=== PATIENT | female | born 1945 | race Caucasian/White ===

== ENCOUNTER 2016-10-05 14:22 | Inpatient (IN) ==
[2016-10-05] MEDS ORDERED: GLUCAGON SUBQ ONE (15:23)
--- NOTE | 2016-10-05 15:28 | PROVIDER DOCUMENTATION ---
HPI-EENT General - General Chief Complaint: Foreign Body/Throat Stated Complaint: throat Time Seen by Provider: 10/05/16 15:13 Source: patient Allergies/Adverse Reactions: Patient Allergies Allergy/AdvReac Type Severity Reaction Status Date / Time povidone-iodine Allergy HIVES Verified 10/05/16 14:30 [From Betadine] soap * [From Betadine] Allergy HIVES Verified 10/05/16 14:30 aspirin [From Percodan] AdvReac NAUSEA/VOMI Verified 10/05/16 14:30 TING oxycodone HCl * AdvReac NAUSEA/VOMI Verified 10/05/16 14:30 [From Percodan] TING oxycodone terephthalate * AdvReac NAUSEA/VOMI Verified 10/05/16 14:30 [From Percodan] TING Home Medications: Home Medication List Medication Instructions Recorded Confirmed Last Taken Type Carvedilol 12.5 mg PO BID 02/16/16 06/10/16 05/22/16 History Donepezil HCl 10 mg PO QHS 02/16/16 06/10/16 05/07/16 21:00 History PRAVAstatin [Pravachol] 40 mg PO QHS 02/16/16 06/10/16 05/07/16 21:00 History Vitamin E 400 units PO DAILY 02/16/16 06/10/16 05/22/16 History Acetaminophen [Tylenol] 650 mg PO Q6H PRN PRN 05/09/16 06/10/16 Unknown History Duloxetine [Cymbalta] 20 mg PO DAILY 05/09/16 06/10/16 05/22/16 History Loperamide [Imodium] 2 - 4 mg PO Q4H PRN PRN MDD 5 soses 05/09/16 06/10/16 Unknown History Memantine [Namenda] 10 mg PO BID 05/09/16 06/10/16 Unknown History Ondansetron HCl [Zofran] 4 mg PO Q4-6H PRN PRN 05/09/16 06/10/16 Unknown History Alprazolam [Xanax] 0.5 tab PO BID PRN 05/22/16 06/10/16 Unknown History BENAZEpril [Lotensin] 40 mg PO DAILY #30 tablet 05/24/16 06/10/16 Unknown Rx Amlodipine Besylate [Norvasc] 5 mg PO DAILY #30 tablet 05/30/16 06/10/16 Unknown Rx Calcium Carbonate [Calcium Antacid] 1 tab PO TID 09/29/16 09/29/16 Unknown History Ferrous Sulfate [Iron] 65 mg PO DAILY 09/29/16 09/29/16 Unknown History Ibuprofen 1 tab PO DIRECTED 09/29/16 09/29/16 Unknown History Loratadine 1 tab PO DAILY 09/29/16 09/29/16 Unknown History Montelukast [Singulair] 1 tab PO DAILY 09/29/16 09/29/16 Unknown History Trazodone [Desyrel] 1 tab PO HS 09/29/16 09/29/16 Unknown History Vits A,C,E/Lutein/Minerals [I-Mercedes 1 tab PO DAILY 09/29/16 09/29/16 Unknown History Tablet] Polyethylene Glycol 3350 [Miralax] 17 gm PO DAILY PRN PRN #7 powd.pack 09/30/16 Unknown Rx - History of Present Illness-EENT General Nature of Presenting Problem: 71 year old WF presents from the [facility]. pt reports she was eating a pork chop at lunch and began to choke. EMS was activated and they report she had 1 episode of emesis while enroute. pt initially reported she had the sensation of "something in my throat." upon sitting the patient up to listen to her chest, she vomited fluid/food mixture and immediately reported she felt better. she reports she feels like the food has moved down into her chest. pt in no respiratory/airway distress. pt is lying in the supine position, speaking a full sentence, breathing unlabored. EENT Location: reports: throat Quality of Pain: reports: dull Severity: reports: mild Onset/Duration: reports: just prior to arrival Timing: reports: still present, improving Prearrival Treatment: Initiated no prearrival treatment Associated Symptoms: denies: cough, drooling, voice change - Throat/Dental Throat/Dental Problem Symptoms: denies: unable to swallow Throat/Dental Problem Context: reports: foreign body, ingestion Review of Systems - Adult - REVIEW OF SYSTEMS - ADULT Constitutional: reports: no symptoms reported. denies: chills, fever Eyes: reports: no symptoms reported. denies: discharge, blurred vision Ears, Nose, Mouth & Throat: reports: see HPI, throat pain. denies: ear pain, mouth swelling, hoarseness, throat swelling Cardiovascular: reports: no symptoms reported. denies: chest pain, palpitations , syncope Respiratory: reports: no symptoms reported. denies: chronic cough, cough, shortness of breath, wheezing Gastrointestinal: reports: see HPI, nausea, vomiting. denies: abdominal pain, hematemesis, constipation, diarrhea Genitourinary: reports: no symptoms reported. denies: dysuria, hematuria, urgency Musculoskeletal: reports: no symptoms reported. denies: bone pain, joint pain, joint swelling, neck pain Integumentary: reports: no symptoms reported. denies: hives, itching, skin sores/ulcer Neurological: reports: no symptoms reported. denies: ataxia, dizziness/vertigo , numbness, paresthesia Psychiatric: reports: no symptoms reported Endocrine: reports: no symptoms reported Hematologic/Lymphatic: reports: no symptoms reported Allergic/Immunologic: reports: no symptoms reported All Other Systems: Reviewed and Negative Past History - Adult - PAST MEDICAL HISTORY-ADULT Review of Records: reports: Old Records Reviewed, Nursing Assessment Review, Medications Reviewed, Social history reviewed & non-contributory. Major Childhood Illnesses: reports: denies history Cardiovascular: reports: CAD, CHF, HTN, ND Respiratory: reports: COPD Gastrointestinal: reports: denies history Obstetrical/Gynecological: reports: denies history Genitourinary: reports: kidney disease Musculoskeletal: reports: denies history Neurological: reports: Alzheimer's, dementia, headaches/migraines Endocrine/Immune: reports: denies history Other Conditions: reports: denies history - PRIOR SURGERIES/PROCEDURES Surgical/Procedure History: reports: hysterectomy - IMMUNIZATION STATUS Childhood Immunizations: See Nurse Assessment Flu Vaccine: See Nurse Assessment - FAMILY HISTORY Family History: reviewed, not pertinent Physical Exam- EENT - Physical Exam EENT Initial Vital Signs Reviewed: Yes General Appearance: appears well, alert, no apparent distress. negative: mild distress, moderate distress, severe distress Eye Exam: bilateral eye: normal inspection Nasal Exam: normal inspection Throat Exam: normal mouth inspection, pharynx normal. negative: excessive drooling, foreign body, pharynx swelling, pharynx tenderness, tongue swollen, tonsillar exudate, tonsillar swelling, trismus, uvula swelling, voice changes Neck: non-tender, full range of motion, supple, normal inspection. negative: C- spine tenderness, limited range of motion, tender lateral, tender midline Respiratory: chest non-tender, lungs clear, normal breath sounds, no pleuratic chest pain, no respiratory distress, no accessory muscle use. negative: respiratory distress, decreased breath sounds, accessory muscle use, crackles, rales, rhonchi, stridor, wheezing Cardiovascular: normal peripheral pulses, regular rate, rhythm Abdominal Exam: normal bowel sounds, non tender, soft Back Exam: normal inspection, no vertebral tenderness Extremity: normal range of motion, non-tender Integumentary: normal color, normal turgor, warm/dry. negative: pallor Neurologic: grossly normal, no motor/sensory deficits Psych/Mental Status: normal mood/affect, normal thought content, normal thought process, oriented x 3 Progress - PLAN OF CARE/RESULTS Progress/Plan/Lab Results: Laboratory Results - last 24 hr 10/05/16 17:10 Sodium 136 Potassium 3.7 Chloride 100 Carbon Dioxide 20 L Anion Gap 16 BUN 15 Creatinine 1.3 H Estimated GFR/1.73 m2 40 BUN/Creatinine Ratio 12 Glucose 232 H Calculated Osmolality 280 Calcium 10.4 H Total Bilirubin 0.50 AST 22 ALT 16 Alkaline Phosphatase 126 H Total Protein 7.7 Albumin 4.3 Globulin 3.0 Albumin/Globulin Ratio 1.0 Amylase 66 Lipase 51 Orders Category Date Time Status Admit - [facility] Routine AdmDCTranf 10/05/16 17:12 Ordered Saline Loc DIRECTED Care 10/05/16 16:22 Active Saline Loc NOW Care 10/05/16 16:22 Active NPO Diet 10/05/16 16:22 Completed CHEST-2 VIEWS [RAD] Stat Exams 10/05/16 14:45 Draft CHEST-PORTABLE [RAD] Stat Exams 10/05/16 16:19 Draft NECK AP AND/OR LAT SOFT TISSUE [RAD] Stat Exams 10/05/16 14:45 Draft AMYLASE [CHEM] Stat Lab 10/05/16 17:10 Completed CBC WITH ELECTRONIC DIFF [HEME] Stat Lab 10/05/16 17:10 Completed COMPREHENSIVE METABOLIC PANEL [CHEM] Stat Lab 10/05/16 17:10 Completed LIPASE [CHEM] Stat Lab 10/05/16 17:10 Completed 0.9% Sodium Chloride Inj [Ns] 1,000 ml Med 10/05/16 17:37 Discontinued IV 999 mls/hr Glucagon Med 10/05/16 15:23 Discontinued 1 mg SUBQ NOW ONE Morphine Med 10/05/16 16:28 Discontinued 2 mg IV NOW ONE Morphine Med 10/05/16 17:39 Discontinued 2 mg IV NOW ONE Ondansetron [Zofran] Med 10/05/16 16:28 Discontinued 4 mg IV NOW ONE Ondansetron [Zofran] Med 10/05/16 17:39 Discontinued 4 mg IV NOW ONE Transfer/Admit Order [TRANSFER] Routine Transfer 10/05/16 17:13 Completed Reviewed radiology with Dr. Hills, noted air fluid levels. Films were performed prior to my evaluation, emesis and improvement. Plan: administer glucagon, repeat CXR to see if improvement. Vital Signs - 24 hr 10/05/16 14:25 10/05/16 18:02 Temperature 97.4 F L Pulse Rate 73 71 Respiratory Rate 18 18 Blood Pressure 185/74 O2 Sat by Pulse Oximetry 100 99 Result Diagrams: 10/05/16 22:40 10/05/16 17:10 - REASSESSMENT Reassessment #1 Time Reassessed: 16:19 Status: worsening (pt colette reports severe abd pain, writhing around in bed. pt reports the chest discomfort has resolved, pt has had multiple episodes of vomiting, repeat CXR.) Reassessment #2 Time Reassessed: 16:45 Status: other (repeat CXR improved, however, pt continues to vomit, Dr. Hills aware, GI consult. Notified of pending consult and transfer, he verbalized understanding.) Reassessment #3 Time Reassessed: 18:06 Status: other ( is very agitated with delay of transfer to [facility]. Have spent extensive time at the bedside educating on the need for a bed assignment before transfer. Pts vomiting persists with pain, will medicate) - XRAY 1 XRAY Study: Chest Impression: Abnormal (esophageal air fluid level) 2 XRAY Study: Chest Impression: Abnormal (improved air fluid level) - CONSULTS/PCP/HOSPITALIST Notification #1 *Consult/PCP/Hospitalist*: Dr. George Time Discussed: 16:55 Consult Disposition: other (have patinet transferred to DG and she will scope, have pt admitted to hospitalist and she will consult.) #2 Consult: Dr. Eaton Time Discussed: 17:00 Consult Disposition: other (notified of transfer, agrees.) #3 Consult: Dr. Richard Time Discussed: 17:14 Consult Disposition: Admit (will inquire about bed status and call back. If no beds available, pt will go to the ED.) Departure - Departure Time of Disposition Decision: 16:55 DIAGNOSIS: Esophageal foreign body Qualifiers: Encounter type: initial encounter Qualified Code(s): T18.108A - Unspecified foreign body in esophagus causing other injury, initial encounter Disposition: ADMITTED INPATIENT 09 Certified Medical Emergency: Emergent Condition: Stable Attestation - Physician/ NOEMI Attestation Patient care was provided by Advanced Practice Provider:: Yes Advanced Practice Provider:: Feliberto Delarosa Advanced Practice Provider documentation review:: The Mid-level provider documentation, treatment plan and medical decision making was reviewed by the physician who agrees with all treatment and medical decision making by the MLP.
--- NOTE | 2016-10-05 15:30 | Diag Imaging Result Document ---
PROCEDURE NAME: CHEST-2 VIEWS - 10/05/2016 CHEST X-RAY, 2 VIEWS: COMPARISON: 05/22/2016. FINDINGS: There is an air-fluid level in the upper thoracic esophagus on both views. This is consistent with an obstruction at the distal esophagus. No free air. The lungs are clear and the heart size is normal. IMPRESSION: Air-fluid level in the upper thoracic esophagus consistent with obstruction of the distal esophagus, presumably from a food bolus.
--- NOTE | 2016-10-05 15:46 | Diag Imaging Result Document ---
PROCEDURE NAME: NECK AP AND/OR LAT SOFT TISSUE - 10/05/2016 X-RAY SOFT TISSUE NECK, 2 VIEWS: COMPARISON: None. FINDINGS: The exam is normal. IMPRESSION: Negative exam.
[2016-10-05] MEDS ORDERED: MORPHINE IV ONE ×2 (16:28→17:39)
[2016-10-05] MEDS ORDERED: ZOFRAN IV ONE ×2 (16:28→17:39)
[2016-10-05 17:16] LABS: MANUAL DIFF NEEDED? NO
--- NOTE | 2016-10-05 17:16 | Diag Imaging Result Document ---
PROCEDURE NAME: CHEST-PORTABLE - 10/05/2016 PORTABLE CHEST AT 1636 HOURS: COMPARISON: 1601 hours. FINDINGS: The esophageal air-fluid level is not as convincingly visible on this exam, this is limited since it was only a single view exam. IMPRESSION: Limited for evaluation of the esophagus. No obvious air-fluid level.
[2016-10-05 17:18] LABS: BASO% 0.5 % (0.0-0.8); EOS# 0.61 X1000 (0.0-0.7); EOS% 3.4 % (0.0-10.0); HEMATOCRIT 35.5 % (37.0-47.0); HEMOGLOBIN 12.5 g/dL (12.0-16.0); IMM GRAN# 0.04 X1000 (0.0-0.04); IMM GRAN% 0.2 % (0.0-0.5); LYMPH# 2.61 X1000 (1.2-3.4); LYMPH% 14.7 % (20.5-51.1); MCH 29.4 PG (27-31); MCHC 35.2 g/dL (33-37); MCV 83.5 FL (81-99); MONO# 0.87 X1000 (0.11-0.59); MONO% 4.9 % (1.7-9.3); MPV 9.6 FL (7.4-10.4); NEUT% 76.3 % (42.2-75.2); PLT 292 X1000 (130-400); RBC 4.25 XMIL (4.2-5.4)
[2016-10-05] MEDS ORDERED: NS 1,000 ML IV ONE (17:37)
[2016-10-05 17:58] LABS: ALBUMIN 4.3 g/dL (3.5-5.0); CALCIUM 10.4 mg/dL (8.8-10.2); POTASSIUM 3.7 mmol/L (3.5-5.1); TOTAL BILIRUBIN 0.5 mg/dL (0.20-1.00); TOTAL PROTEIN 7.7 g/dL (6.3-8.3)
[2016-10-05] MEDS ORDERED: PROTONIX IV SCH (19:15)
[2016-10-05] MEDS: SODIUM CHLORIDE 0.9% INJ SCH (20:29)
[2016-10-05] MEDS: NS 1,000 ML IV SCH (20:29)
--- NOTE | 2016-10-05 21:45 | HISTORY AND PHYSICAL ---
PCP: Ca Crowe. PRESENTING COMPLAINT: Unable to swallow due to food stuck in her throat. 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 She refers to have been doing relatively fine until this afternoon she was eating some pork chops and felt that the chunk of whatever she was eating has stuck in her throat. She tried multiple times to throw up or to swallow it down and it would not happen. She was taken to [facility] via EMS where she was initially evaluated and neck and soft tissue x-ray was initially done which showed some air-fluid level in the upper thoracic esophagus consistent with obstruction of the distal esophagus presumably from the food bolus. The patient was given initial therapy and apparently she seems to have vomited the material out. However she continues to have mild discomfort upon swallowing so she was brought in to be evaluated by GI. PAST MEDICAL HISTORY: 1. Hypertension. 2. NH. 3. COPD. 4. Dementia. 5. Myelodysplastic syndrome. PAST SURGICAL HISTORY: 1. Hysterectomy. 2. Tonsillectomy. 3. Pituitary tumor. FAMILY HISTORY: Is positive for coronary artery disease. Breast cancer. SOCIAL HISTORY: Patient currently lives in assisted living. Denies any tobacco or alcohol use. ALLERGIES: Percodan HOME MEDICATIONS: Are currently not verify and patient does not really know what she takes. REVIEW OF SYSTEMS: 14 point review of system conducted with Ms. Adams is unremarkable except what we have in the HPI. OBJECTIVE: Vital signs: Blood pressure is 183/75, pulse of 72, respirations 20 , temperature 97.4 degrees. General: Ms. Adams is a 71-year-old female. She was in bed and not in any distress. HEENT: Mucosa is pink and moist. Anicteric. Acyanotic. Neck: Supple. Chest: Clear. Cardiovascular: Regular rate and rhythm. No murmurs, no rubs. No gallops. Abdomen: Soft. Mildly tender in the epigastrium but there is no guarding or rebound. 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 Does not have any focal neurological deficit. However she is bilateral blind. Cranial nerves 3-12 are grossly examined and are unremarkable. Patient does have significant memory impairment on testing. LABORATORY DATA: WBC is 11.77, hemoglobin is 12.5, platelet count is 295,000. Chemistry. Sodium 136, potassium 3.7, chloride is 100, bicarb is 20, anion gap is 16, creatinine is 1.3, glucose is 232, calcium is 10.4. ASSESSMENT: Ms Adams with multiple comorbidities who currently lives at the assisted living presented with what seems to have been dysphagia secondary to food bolus. 1. Dysphagia secondary to food bolus. This seems to have improved however patient continues to have residual discomfort upon swallowing. GI has been consulted. Dr. George will evaluate the patient and give us some further recommendations. For now we will put the patient NPO until she gets to be evaluated by GI. 2. Mild clinical dehydration. We would continue adequate hydration with normal saline at 75 mL per hour. 3. Acute on chronic kidney disease likely due to dehydration. 4. Hyperglycemia. Not sure if it is just a stress response. We will do an A1c to better characterize this. 5. Mild hypercalcemia. I think this is related to the dehydration. Once we get her were hydrated I think it will improve. cc: Figueroa Richard MD MTDD
[2016-10-05 22:51] LABS: MANUAL DIFF NEEDED? NO
--- NOTE | 2016-10-05 22:56 | CONSULTATION ---
DATE OF CONSULTATION: 10/05/2016 REFERRING PHYSICIAN: Lucio Hills M.D. PRIMARY PROVIDER: NENA Luu. PRIMARY HOSPITALIST: Figueroa Richard M.D. INDICATION FOR CONSULTATION: 1. Food impaction. 2. Epigastric pain. 3. Constipation. HISTORY OF PRESENT ILLNESS: The patient is a 71-year-old white female who states that she was in her usual state of health. She was eating lunch with her friends at the [facility] which she became choked on a pork chop. The Heimlich maneuver was tried 3 times at table side without success, 911 was called and she was transported to [place] emergency room. When she presented to the emergency room, she was actively vomiting. The chest x-ray that was performed in the emergency room revealed an air-fluid level in the midthoracic area consistent with food impaction. She had no response to IV glucagon. However, she had multiple episodes of emesis immediately before her transport to [facility]. She subsequently regurgitated a piece of pork chop and had immediate symptomatic improvement. She continued to have hiccups upon her arrival to [facility]. These have subsequently subsided. She notes longstanding heartburn and indigestion. She was recently placed on Prilosec since she and her became residents at the [facility] which is an assisted living facility. She has chronic constipation. However, her constipation has become worse over the last 2-3 months. She also reports that her stools have become black and she is not sure why. She was recently seen in the emergency room on 09/29/2016 with increasing abdominal pain. CT scan at that time was remarkable for severe constipation. In addition, she had a large hiatal hernia. Otherwise, the CT scan was unremarkable. There was no evidence of gallstones and the gallbladder appeared grossly normal. The small bowel was not distended. She did have evidence of fecal impaction on CT scan of the pelvis. She states that the constipation persists. She is concerned because over the last 2-3 months she has felt increasingly weak and unsteady on her feet. She reports that the weakness began about the same time that her stools turned black. She has not been seen by a cake former in recent years. She states her last colonoscopy was more than 15 years ago. She denies a family history of colon cancer or colon polyps. PAST MEDICAL HISTORY: 1. Hypertension. 2. Myocardial infarction. 3. COPD. 4. CHF. 5. Alzheimer's. 6. Dementia. 7. GERD. 8. Myelodysplastic syndrome. 9. History of a PE and DVT. 10. Bilateral pneumonia. PAST SURGICAL HISTORY: 1. [place] filter. 2. Hysterectomy. 3. Uterine fibroid removal. 4. Tonsillectomy. 5. Pituitary tumor. FAMILY HISTORY: Positive for coronary artery disease, breast cancer, lung cancer and a brain tumor. SOCIAL HISTORY: She resides at assisted living facility. There is no alcohol, tobacco, recreational drug use. MEDICATION ALLERGIES: 1. Betadine. 2. Percodan. 3. Aspirin. 4. Soap. 5. Oxycodone. HOME MEDICATIONS: 1. Eye-Mercedes. 2. Vitamin E. 3. Desyrel. 4. MiraLAX. 5. Pravachol. 6. Zofran. 7. Singulair. 8. Namenda. 9. Loratadine. 10. Imodium as needed. 11. Ibuprofen. 12. Iron. 13. Cymbalta. 14. Donepezil. 15. Carvedilol. 16. Calcium carbonate. 17. Lotensin. 18. Norvasc. 19. Xanax. 20. Tylenol. REVIEW OF SYSTEMS: Remarkable for epigastric discomfort. She reports that she is able to swallow without difficulty. She denies chest pain, shortness of breath, abdominal pain but notes constipation. PHYSICAL EXAM: General: She is in no acute distress. She is resting comfortably in the bed and able to speak in full sentences. Vital signs: Her blood pressure is 182/72, pulse is 70, respiration 18, temperature of 98.2 degrees. HEENT: Negative for jaundice. The conjunctivae appeared normal. Oropharyngeal mucosal membranes are unremarkable. There is no evidence of a foreign body in the oral cavity. Pulmonary: Lungs are clear to auscultation with normal expiratory effort. Cardiovascular Exam: Reveals regular rate and rhythm with no murmurs, gallops, or rubs. Abdominal Exam: Reveals normoactive bowel sounds. The abdomen is soft with moderate epigastric tenderness. There is no rebound or guarding. She does have mild central adiposity. Extremities: Bilaterally are negative for cyanosis, clubbing or edema. Neurologic Exam: She is alert and oriented x3 but she struggles with memory recall of events and medications consistent with her history of dementia. OBJECTIVE DATA: Reveals a hemoglobin of 12.5 with a hematocrit of 35.5 and a white count of 17.77. She has 292,000 platelets. Sodium is 136, potassium 3.7, chloride 100, CO2 20, BUN 15, creatinine 1.3 with a glucose of 232. Her calcium is 10.4 with a total bilirubin of 0.50, AST 22, ALT 16, alkaline phosphatase 127, total protein 7.7, albumin 3.4. Her amylase is 66 and lipase is 51. Chest x-ray and abdominal CT scan are as noted above. IMPRESSION: 1. Heartburn. 2. Food impaction. 3. Dysphagia. 4. Epigastric pain on physical exam. 5. History of chronic constipation. 6. Personal report of black stools. 7. Ongoing nonsteroidal anti-inflammatory drug use. 8. Labs suggestive of volume depletion. 9. Change in bowel habits with worsening constipation. RECOMMENDATION: 1. Begin Prilosec 40 mg IV q.12 hours. 2. At bedside, she was able to swallow sips of water without difficulty consistent with a history of dislodging the food impaction. However, she has longstanding heartburn but has never had a food impaction in the past. Therefore, I recommend a modified barium swallow to determine if she has esophageal spasm or an obstruction. One is treated with medication while the other would be treated with dilation. Once we have this information will schedule the patient for an EGD with possible dilation and/or biopsy. 3. She reports epigastric pain and black stools for the last 2-3 months. Therefore, she will need an EGD on either this admission or as an outpatient, based on the swallow study. 4. She is currently receiving ibuprofen which I would encourage that it be discontinued. Please considered non-NSAID forms of medication for pain control as needed. 5. Her labs are consistent with volume depletion. Given her age, it is reasonable to consider normal saline 75 mL/h. If her labs remain consistent with volume contraction in the morning, it would be reasonable to consider additional fluids. 6. Please check serum chemistries in the morning. 7. Please obtain a PT/INR as well as a repeat CBC tonight to assess for blood loss as she reports black stools at home. 8. Please check her stool for occult blood. 9. She will need an elective outpatient colonoscopy to assess the change in bowel habits. 10. Additional recommendations to follow based on her clinical course. cc: MD Angeles Chowdhury CRNP MTDD
[2016-10-05] MEDS: PROTONIX IV SCH (22:57)
[2016-10-05 23:05] LABS: BASO% 0.5 % (0.0-0.8); EOS# 0.63 X1000 (0.0-0.7); EOS% 5.4 % (0.0-10.0); HEMOGLOBIN 11.2 g/dL (12.0-16.0); IMM GRAN# 0.04 X1000 (0.0-0.04); IMM GRAN% 0.3 % (0.0-0.5); LYMPH# 2.66 X1000 (1.2-3.4); LYMPH% 22.7 % (20.5-51.1); MCH 29.9 PG (27-31); MCV 85.3 FL (81-99); MONO# 0.95 X1000 (0.11-0.59); MONO% 8.1 % (1.7-9.3); MPV 9.5 FL (7.4-10.4); PLT 277 X1000 (130-400); RBC 3.75 XMIL (4.2-5.4)
[2016-10-05] MEDS: MIRALAX PO SCH (23:11)
[2016-10-05 23:14] LABS: INR 1.09; PROTIME 11.5 Seconds (9.2-11.7)
[2016-10-06 05:52] LABS: URINE CULTURE NEEDED? NO; URINE MICRO REVIEW NEEDED? NO; URINE SOURCE CATH
[2016-10-06 05:55] LABS: BILIRUBIN URINE NEGATIVE (NEGATIVE); BLOOD URINE NEGATIVE (NEGATIVE); COLOR YELLOW; GLUCOSE URINE NEGATIVE (NEGATIVE); LEUKOCYTES URINE NEGATIVE (NEGATIVE); NITRITE URINE NEGATIVE (NEGATIVE); PROTEIN URINE 200 mg/dL (NEGATIVE); TURBIDITY URINE CLEAR (CLEAR); UROBILINOGEN URINE NORMAL (NORMAL)
[2016-10-06 05:56] LABS: UR EPITHELIAL CELLS <10 /HPF (<10); URINE BACTERIA NEGATIVE /HPF; URINE RBC <10 /HPF (<10); URINE WBC <10 /HPF (<10)
[2016-10-06] MEDS: NS 1,000 ML IV SCH (09:38)
[2016-10-06] MEDS: PROTONIX IV SCH ×2 (11:22→20:52)
[2016-10-06] MEDS: MIRALAX PO SCH ×3 (11:22→22:49)
--- NOTE | 2016-10-06 16:32 | PROGRESS NOTE ---
DATE: 10/06/2016 SUBJECTIVE: Today Ms. Adams refers to be doing fine. She is actually tolerating very well a clear liquid diet. OBJECTIVE: Vital signs: Blood pressure is 170/58, pulse of 70, respirations 16, temperature is 98.1 degrees. General: Ms. Adams is a 71-year-old female. She was in bed. Not in any distress. HEENT: Mucosa is pink and moist. Anicteric and acyanotic. Neck: Supple. Chest: Clear. Cardiovascular: Regular rate and rhythm. Abdomen: Soft, nontender. Extremities: No pedal edema. 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 Disoriented to time and he is easily forgetful. LABORATORY WORK: No laboratory work for today. ASSESSMENT: 1. Dysphagia secondary to food impaction. This seems to have resolved. Patient seems to be tolerating clear liquid diet/full liquid diet. There is a plan for her to do a barium swallow tomorrow. I think once that is done and it is okay, we will be able to discharge her. 2. Mild dehydration. This is improving with the gentle hydration. 3. Acute on chronic kidney disease. 4. History of gastroesophageal reflux disease. The patient continues on proton pump inhibitor. 5. Cognitive decline likely due to Alzheimer's. 6. History of myelodysplastic syndrome. 7. Legal blindness. PLAN: So in general, I think Ms. Adams is doing a whole lot better. She is tolerating her clear liquid/full liquid diet. She has a barium swallow test tomorrow. If that is fine, we will be able to discharge her to her assisted living. cc: Figueroa Richard MD
[2016-10-06] MEDS: NORVASC PO SCH (17:33)
[2016-10-06] MEDS: OCUVITE LUTEIN & ZEAXANTHIN PO SCH (17:33)
[2016-10-06] MEDS: VITAMIN E PO SCH (17:33)
[2016-10-06] MEDS: COREG PO SCH ×2 (17:33→20:52)
[2016-10-06] MEDS: ARICEPT PO SCH (20:50)
[2016-10-06] MEDS: PRAVACHOL PO SCH (20:51)
[2016-10-06] MEDS: NAMENDA PO SCH (20:52)
[2016-10-06] MEDS: SODIUM CHLORIDE 0.9% INJ SCH (20:52)
[2016-10-06] MEDS: XANAX PO PRN (23:18)
[2016-10-07] MEDS: PROTONIX IV SCH ×3 (02:26→21:29)
[2016-10-07] MEDS: NS 1,000 ML IV SCH (02:54)
[2016-10-07 06:13] LABS: MANUAL DIFF NEEDED? NO
[2016-10-07 06:19] LABS: BASO% 0.9 % (0.0-0.8); EOS# 1.06 X1000 (0.0-0.7); EOS% 10.1 % (0.0-10.0); HEMATOCRIT 28.5 % (37.0-47.0); HEMOGLOBIN 9.8 g/dL (12.0-16.0); LYMPH# 3.04 X1000 (1.2-3.4); LYMPH% 28.8 % (20.5-51.1); MCH 30.1 PG (27-31); MCHC 34.4 g/dL (33-37); MCV 87.4 FL (81-99); MONO# 0.88 X1000 (0.11-0.59); MONO% 8.3 % (1.7-9.3); MPV 9.6 FL (7.4-10.4); NEUT% 51.9 % (42.2-75.2); PLT 253 X1000 (130-400); RBC 3.26 XMIL (4.2-5.4)
[2016-10-07 06:29] LABS: ALBUMIN 3.1 g/dL (3.5-5.0); CALCIUM 9.1 mg/dL (8.8-10.2); POTASSIUM 4.2 mmol/L (3.5-5.1); TOTAL BILIRUBIN 0.33 mg/dL (0.20-1.00); TOTAL PROTEIN 5.7 g/dL (6.3-8.3)
[2016-10-07] MEDS: SODIUM CHLORIDE 0.9% INJ SCH ×2 (09:29→21:29)
[2016-10-07] MEDS: NAMENDA PO SCH ×2 (09:30→21:29)
[2016-10-07] MEDS: COREG PO SCH ×2 (09:30→21:29)
[2016-10-07] MEDS: MIRALAX PO SCH ×2 (09:31→21:30)
[2016-10-07] MEDS: VITAMIN E PO SCH (09:31)
[2016-10-07] MEDS: NORVASC PO SCH (09:31)
--- NOTE | 2016-10-07 10:15 | PROGRESS NOTE ---
DATE: 10/07/2016 SUBJECTIVE: Today Ms. Adams refers to be doing okay. She has been able to be tolerating her clear liquid diet. OBJECTIVE: Vital signs: Blood pressure is 186/60, pulse 65, respirations 16, temperature is 98.1 degrees. General: Ms. Adams is a 71-year-old male female. She was in bed. She did not seem to be in any distress. HEENT: Mucosa is pink and moist. Anicteric. Acyanotic. Neck: Supple. Chest: Good air entry bilaterally. No crepitations. No rhonchi. Cardiovascular: Regular rate and rhythm. Abdomen: Soft, nontender. Bowel sounds are present. There is no hepatosplenomegaly. There is an old infraumbilical surgical scar. Extremities: No pedal edema. PHOTOGRAPHER SCIENTIFIC: Patient seems to be an alert and oriented. Follows some basic commands. LABORATORY DATA: CBC is done. Hemoglobin is 9.8. The rest of labs is normal. Chemistries reviewed, completely normal. Creatinine is down to 1.1. ASSESSMENT: 1. Dysphagia secondary to food impaction. This seems to have improved. Patient is pending barium swallow. 2. Mild dehydration improved. 3. Acute on chronic kidney disease. Creatinine is back to baseline. 4. History of gastroesophageal reflux disease. The patient is on Protonix. 5. Cognitive decline likely due to Alzheimer's. We started the patient on her home medications. 6. History of myelodysplastic syndrome. 7. Legal blindness. In general, Ms. Adams seems to be doing okay. She is tolerating her clear liquid diet. She is pending a barium swallow today and if that test is normal will be able to discharge the patient home. Follow up with Dr. George on outpatient basis. cc: Figueroa Richard MD
[2016-10-07] MEDS: OCUVITE LUTEIN & ZEAXANTHIN PO SCH (10:35)
[2016-10-07] MEDS: XANAX PO PRN (10:35)
--- NOTE | 2016-10-07 13:00 | Diag Imaging Result Document ---
PROCEDURE NAME: BA SWALLOW W/VIDEO SPEECH THER - 10/07/2016 MODIFIED BARIUM SWALLOW WITH SPEECH THERAPIST: DOSE: Total dose is 121 mGy. FLUOROSCOPY TIME: 18 seconds. FINDINGS: Thick and thin barium swallowed without difficulty. No aspiration occurred during the exam. The patient has prominent tertiary contractions in the distal esophagus. No other abnormality identified. IMPRESSION: Prominent tertiary contractions in the distal esophagus. MTDD
[2016-10-07] MEDS ORDERED: GOLYTELY PO ONE (14:00)
--- NOTE | 2016-10-07 15:16 | PROGRESS NOTE ---
DATE: 10/07/2016 SUBJECTIVE: The patient states that overnight she slept well. She feels significantly better. However, she continues to have epigastric pain. She notes that she is swallowing better but is concerned that food will stick in her esophagus. On modified barium swallow, she had presbyesophagus. She continues to have constipation. She notes that she has never had a colonoscopy. She is concerned because her constipation has become worse in the last 2-3 months. She also notes dark stools that persist. Since admission, she has had no bowel movements. OBJECTIVE: General: On examination, she is in no acute distress. Vital Signs: Her blood pressure is 175/74, pulse 63, respiration 18, temperature 97 degrees. Pulmonary Examination: Lungs are clear to auscultation with normal respiratory effort. Cardiovascular Examination: Reveals regular rate and rhythm with no murmurs, gallops, or rubs. Abdominal Examination: Reveals normoactive bowel sounds. The abdomen is soft with moderate epigastric tenderness but no rebound or guarding. Extremities: Bilaterally are negative for cyanosis, clubbing, or edema. OBJECTIVE DATA: Remarkable for hemoglobin of 9.8 with hematocrit of 28.5 and a white count of 10.54 with 254,000 platelets. Sodium is 141, potassium 4.2, chloride 106, CO2 26, BUN 10, creatinine 1.1 with a glucose of 77. Calcium is 9.1, total bilirubin 0.33, AST 17, ALT 10, alkaline phosphate 83, total protein 5.7, albumin 3.1. IMPRESSION: 1. Food impaction. 2. Epigastric pain. 3. Chronic reflux. 4. Heartburn. 5. Dysphagia. 6. Chronic constipation. 7. Recent change in bowel habits. 8. Nonsteroid anti-inflammatory drug use. 9. Progressive anemia with a drop in hemoglobin of 2 g since admission. RECOMMENDATIONS: 1. Continue Protonix 40 mg IV q.12 hours. 2. I will schedule the patient for EGD and colonoscopy in the morning given her drop in hemoglobin and recent change in bowel habits as well as the above symptoms. 3. We will continue to hold NSAIDs. 4. Additional recommendations to follow based on her clinical course and endoscopy. cc: MD Angeles Livingston CRNP Raphael K. Quansah, MD Jeanette Keith, MD MTDD
--- NOTE | 2016-10-07 16:21 | PROGRESS NOTE ---
DATE: 10/07/2016 ADDENDUM REPORT: Ms. Adams did a barium swallow today which revealed prominent tertiary contraction in the distal esophagus. However, there was no difficulty swallowing and there was no aspiration. Patient is clinically stable. I did discuss the case with Dr. George but she refers that she does not have any outpatient appointment until after October 25 so the patient can get her procedure done tomorrow or will have to wait. Since I am not very sure about the patient's follow- up plans, I prefer that she get the procedure done and then we can get her discharged first thing tomorrow morning if everything is fine on the procedure. cc: Figueroa Richard MD
[2016-10-07] MEDS ORDERED: TYLENOL PO PRN (19:47)
[2016-10-07] MEDS: ARICEPT PO SCH (21:29)
[2016-10-07] MEDS: PRAVACHOL PO SCH (21:29)
[2016-10-08] MEDS: PROTONIX IV SCH (07:59)
[2016-10-08] MEDS: SODIUM CHLORIDE 0.9% INJ SCH (08:00)
[2016-10-08] MEDS ORDERED: DIPRIVAN 1% ONE (12:41)
[2016-10-08 13:00] LABS: MANUAL DIFF NEEDED? NO
[2016-10-08] MEDS ORDERED: XYLOCAINE-MPF 2% ONE (13:03)
[2016-10-08] MEDS ORDERED: ANESTHESIA PB SET 88 IN 5742 ONE (13:03)
[2016-10-08] MEDS ORDERED: LR 1,000 ML ONE (13:03)
[2016-10-08 13:18] LABS: BASO% 0.6 % (0.0-0.8); EOS# 1.09 X1000 (0.0-0.7); EOS% 8.6 % (0.0-10.0); HEMATOCRIT 32.8 % (37.0-47.0); HEMOGLOBIN 11.5 g/dL (12.0-16.0); IMM GRAN# 0.02 X1000 (0.0-0.04); IMM GRAN% 0.2 % (0.0-0.5); LYMPH# 2.23 X1000 (1.2-3.4); LYMPH% 17.6 % (20.5-51.1); MCH 29.7 PG (27-31); MCHC 35.1 g/dL (33-37); MCV 84.8 FL (81-99); MONO# 0.99 X1000 (0.11-0.59); MONO% 7.8 % (1.7-9.3); MPV 8.8 FL (7.4-10.4); NEUT% 65.2 % (42.2-75.2); PLT 255 X1000 (130-400); RBC 3.87 XMIL (4.2-5.4)
[2016-10-08] MEDS: OCUVITE LUTEIN & ZEAXANTHIN PO SCH (13:43)
[2016-10-08] MEDS: NAMENDA PO SCH (13:43)
[2016-10-08] MEDS: COREG PO SCH (13:44)
[2016-10-08] MEDS: NORVASC PO SCH (13:44)
[2016-10-08] MEDS: VITAMIN E PO SCH (13:44)
[2016-10-08] MEDS: MIRALAX PO SCH (13:48)
[2016-10-08] MEDS ORDERED: CARAFATE LIQUID PO SCH (14:00)
[2016-10-08 14:04] VITALS: BP 195/58
--- NOTE | 2016-10-08 20:35 | DISCHARGE SUMMARY ---
ADMISSION DATE: 10/05/2016 DISCHARGE DATE: 10/08/2016 ADMISSION DIAGNOSES: 1. Dysphagia. 2. Mild clinical dehydration. 3. Acute on chronic kidney disease. 4. Hyperglycemia. 5. Mild hypercalcemia. DISCHARGE DIAGNOSES: 1. Dysphagia secondary to food impaction which has improved. 2. Mild dehydration improved. 3. Acute on chronic kidney disease with a creatinine that is back to baseline. 4. History of gastroesophageal reflux disease, on Protonix. 5. Cognitive decline likely due to Alzheimer's with home medications resumed. 6. History of myelodysplastic syndrome. 7. Legal blindness. 8. Hyperglycemia resolved. 9. Mild hypercalcemia resolved. CONSULTATIONS: Dr. Hilda George consulted due to patient with dysphagia. PROCEDURES: On 04/22/2017, she had a modified barium swallow which revealed prominent tertiary contractions in the distal esophagus. HOSPITAL COURSE: Ms. Nichol Adams is a 71-year-old, female with a past medical history of hypertension, COPD, dementia, myelodysplastic syndrome, who presented on 01/2017 with complaints of having a piece of pork chop stuck in her throat. She tried multiple times throwing it up, swallow it down without success. She originally presented at [facility] where she had a neck and soft tissue x-ray which showed some air-fluid level in the upper thoracic esophagus consistent with obstruction of the distal esophagus presumably from the food she had eaten. It appeared that she did eventually vomit the material out but continued to have mild discomfort with swallowing and was transferred to [facility] to be evaluated by GI. Dr. George was consulted who then recommended the patient have a modified barium swallow to determine if this was esophageal spasm or an obstruction, where one would be treated with medication versus the other being treated with dilatation. Apparently she had also reported some epigastric pain and black stools over the last 2-3 months so it was recommended that she have an esophagogastroduodenoscopy performed either this admission or as an outpatient. All NSAIDs were stopped at that time. The modified barium swallow revealed prominent tertiary contraction of the distal esophagus but there was no difficulty with swallowing and no aspiration. She had EGD performed prior to discharge today. DISCHARGE DIET: Full liquid. DISCHARGE LABORATORY DATA: White blood cells 4000, hemoglobin 11, hematocrit 32 , platelet count 255,000. Yesterday she had a sodium of 141, potassium 4.2, BUN 10, creatinine 1.1, glucose 77. DISCHARGE IMAGING: On 10/05/2016, she had a soft tissue neck x-ray which showed a negative examination but had some fluid levels consistent with obstruction in the esophagus. Chest x-ray air-fluid level in the upper thoracic esophagus consistent with obstruction of the distal esophagus with food bolus. DISCHARGE MEDICATIONS: 1. Tylenol p.r.n. 2. Xanax 0.5 p.o. twice daily p.r.n. 3. Norvasc 5 mg p.o. daily. 4. Benazepril 40 mg p.o. daily. Benazepril 10 mg p.o. nightly. 5. Calcium carbonate. 6. Coreg 12.5 p.o. twice daily. 7. Cymbalta 20 mg p.o. daily. 8. Ferrous sulfate 65 mg p.o. daily. 9. Loratadine 9 1 tab p.o. daily. 10. Namenda 10 mg p.o. twice daily. 11. Singulair 10 mg p.o. daily. 12. Zofran 4 mg every 4-6 hours as needed. 13. Protonix 40 mg p.o. daily. 14. MiraLAX 17 g p.o. daily. 15. Pravachol 40 mg p.o. nightly. 16. Carafate 1 g p.o. 3 times a day. 17. Trazodone 50 mg p.o. nightly. 18. Vitamin A 400 units p.o. daily. 19. Vitamins A, C, E, Lutein, minerals 1 tab p.o. daily. DISCHARGE INSTRUCTIONS: 1. Follow up with Dr. George as outpatient. 2. If symptoms recur, please seek medical attention. Dictated by NENA Sahu for Figueroa Richard MD cc: NENA Sahu MD [facility]
--- NOTE | 2016-10-10 03:35 | OPERATIVE NOTE ---
PROCEDURE DATE: 10/08/2016 REFERRING PROVIDER: NENA Quintero. INDICATION FOR PROCEDURE: 1. History of food impaction. 2. Dysphagia. 3. Epigastric pain. PROCEDURE PERFORMED: Esophagogastroduodenoscopy with dilation. CONSENT: Informed consent was obtained from the patient prior to the procedure. The risks, benefits, and alternatives were discussed with the patient and her . MEDICATION: The patient received monitored anesthesia care. PERFORMING PHYSICIAN: Hilda George M.D. ASSISTANTS: 1. [facility] 2. Brayden Mak RN. 3. Letty Nice CRNA. 4. Tito Loving M.D. (anesthesia). COMPLICATIONS: The patient had mild bleeding at the lower esophageal sphincter after dilation. Hemostasis occurred spontaneously. The patient was stable throughout the procedure. The procedure was completed. ESTIMATED BLOOD LOSS: 2-3 mL. SPECIMENS REMOVED: None. FINDINGS: After sedation was achieved, the upper endoscope was inserted to the 2nd portion of the duodenum. The hypopharynx appeared normal. The tubular esophagus appeared normal. There was a Schatzki's ring at the GEJ. The GEJ was measured at 35 cm from the incisors. There was a hiatal hernia from 35-40 cm. In the gastric lumen, there was mild gastritis. On retroflexed view, there were multiple fundic gland polyps. The pylorus appeared normal. In the duodenal bulb, there was mild duodenitis. The second portion of the duodenum was endoscopically normal. After the exam was complete, the scope was retracted into the distal esophagus. A balloon dilator was placed through the scope. The distal esophagus was dilated to 18 mm, then 19 mm, and then 20 mm for 1 minute each. After dilation, the balloon was deflated. There was a modest amount of heme at the lower esophageal sphincter. There was spontaneous hemostasis. The mucosa appeared consistent with a successful dilation. There was no evidence of perforation. After hemostasis was achieved, the lumen was decompressed and the scope was removed without incident. IMPRESSION: 1. Schatzki's ring, status post balloon dilation to 20 mm. 2. Hiatal hernia. 3. Mild gastritis. 4. Multiple fundic gland polyps that remain intact. 5. Mild duodenitis. RECOMMENDATION: 1. Begin full liquids overnight, then advance to soft foods as tolerated. 2. Continue Protonix as an inpatient. She will need oral Prilosec 40 mg daily as an outpatient. 3. Begin Carafate 1 g 4 times a day for 4 weeks and then stop. 4. We will proceed with a colonoscopy as previously scheduled. cc: Hilda George M.D. NENA Quintero. [facility]
--- NOTE | 2016-10-10 03:38 | OPERATIVE NOTE ---
PROCEDURE DATE: 10/08/2016 REFERRING PROVIDER: NENA Quintero. INDICATION FOR PROCEDURE: 1. Change in bowel habits. 2. Constipation. PROCEDURE PERFORMED: None. The procedure was canceled due to an inadequate bowel prep. CONSENT: Informed consent was obtained from the patient prior to the procedure. The risks, benefits, and alternatives were discussed with the patient and her . MEDICATION: The patient received monitored anesthesia care. PERFORMING PHYSICIAN: Hilda George M.D. ASSISTANTS: 1. [facility] 2. Brayden Mak RN. 3. Letty Nice CRNA. 4. Tito Loving M.D. (anesthesia). COMPLICATIONS: None. ESTIMATED BLOOD LOSS: None. SPECIMENS REMOVED: None. FINDINGS: Immediately prior to starting the colonoscopy, the patient passed copious amounts of thick brown stool with solid debris. The procedure was canceled. IMPRESSION: Inadequate prep. RECOMMENDATION: 1. We will schedule the patient for an outpatient colonoscopy with a 2-day bowel prep. 2. We will have the patient return to clinic following her endoscopy. cc: Jojo Uriostegui CRNP. MTDD
== END 2016-10-08 17:16 ==
LOC: 4N 14:22 → P.ED 14:22 → SUATTDRO 17:55 → OBSVTOIN 17:55 → 4N 18:05
PROVIDERS: ATTEND Internal Medicine

== ENCOUNTER 2017-03-10 14:26 | Inpatient (IN) ==
[2017-03-10] MEDS ORDERED: NS 1,000 ML IV ONE (15:05)
[2017-03-10 15:35] LABS: MANUAL DIFF NEEDED? NO
[2017-03-10 15:43] LABS: BASO% 0.7 % (0.0-0.8); EOS# 0.52 X1000 (0.0-0.7); EOS% 3.5 % (0.0-10.0); HEMATOCRIT 37.1 % (37.0-47.0); HEMOGLOBIN 13.3 g/dL (12.0-16.0); IMM GRAN# 0.05 X1000 (0.0-0.04); IMM GRAN% 0.3 % (0.0-0.5); LYMPH# 3.39 X1000 (1.2-3.4); LYMPH% 22.6 % (20.5-51.1); MCH 29.7 PG (27-31); MCHC 35.8 g/dL (33-37); MCV 82.8 FL (81-99); MONO# 1.47 X1000 (0.11-0.59); MONO% 9.8 % (1.7-9.3); MPV 9.6 FL (7.4-10.4); NEUT% 63.1 % (42.2-75.2); PLT 269 X1000 (130-400); RBC 4.48 XMIL (4.2-5.4)
[2017-03-10 15:49] LABS: BILIRUBIN URINE NEGATIVE (NEGATIVE); BLOOD URINE 4+ (NEGATIVE); CLARITY SL. CLOUDY (CLEAR); COLOR YELLOW; GLUCOSE URINE NEGATIVE (NEGATIVE); LEUKOCYTES URINE 2+ (NEGATIVE); NITRITE URINE NEGATIVE (NEGATIVE); SP GRAVITY URINE 1.005; URINE CULTURE PL NEEDED? YES; URINE EPITHELIAL CELLS <10 /HPF (<10); URINE RBC 20-40 /HPF (<10); URINE WBC 20-40 /HPF (<10); UROBILINOGEN URINE NORMAL
[2017-03-10 15:50] LABS: URINE SOURCE CLEAN CATCH
[2017-03-10 15:57] LABS: ALBUMIN 4.3 g/dL (3.5-5.0); CALCIUM 9.9 mg/dL (8.8-10.2); POTASSIUM 4.1 mmol/L (3.5-5.1); TOTAL BILIRUBIN 0.3 mg/dL (0.20-1.00); TOTAL PROTEIN 7.6 g/dL (6.3-8.3)
[2017-03-10 15:58] LABS: UR AMPHETAMINES QUAL NONE DETECTED (NONE DETECT); UR BARBITUATES QUAL NONE DETECTED (NONE DETECT); UR BENZODIAZEPIN QUAL PRESUMPTIVE POSITIVE (NONE DETECT); UR CANNABINOIDS QUAL NONE DETECTED (NONE DETECT); UR COCAINE QUAL NONE DETECTED (NONE DETECT); UR MDMA QUAL NONE DETECTED (NONE DETECT); UR METHADONE QUAL NONE DETECTED (NONE DETECT); UR METHAMPHETAMINE QUAL PRESUMPTIVE POSITIVE (NONE DETECT); UR OPIATES QUAL NONE DETECTED (NONE DETECT); UR OXYCODONE QUAL NONE DETECTED (NONE DETECT); UR PCP QUAL NONE DETECTED (NONE DETECT); UR TCA QUAL NONE DETECTED (NONE DETECT)
[2017-03-10 16:02] LABS: INR 1.05 (0.86-1.15); PROTIME 14.5 Seconds (12.1-15.5)
[2017-03-10 16:07] LABS: PTT PL 39.6 Seconds (22.6-43.9)
[2017-03-10] MEDS ORDERED: ROCEPHIN 1 GM in NS 50 ML IV ONE (16:36)
[2017-03-10] MEDS ORDERED: TYLENOL PO PRN (18:34)
[2017-03-10] MEDS ORDERED: ZOFRAN IV PRN (18:34)
[2017-03-10] MEDS: NS 1,000 ML IV SCH (21:24)
[2017-03-11 05:49] LABS: MANUAL DIFF NEEDED? NO
[2017-03-11 05:55] LABS: BASO% 0.8 % (0.0-0.8); EOS# 0.33 X1000 (0.0-0.7); EOS% 3.2 % (0.0-10.0); HEMATOCRIT 32.9 % (37.0-47.0); HEMOGLOBIN 11.5 g/dL (12.0-16.0); IMM GRAN# 0.02 X1000 (0.0-0.04); IMM GRAN% 0.2 % (0.0-0.5); LYMPH# 2.57 X1000 (1.2-3.4); LYMPH% 24.8 % (20.5-51.1); MCH 29.3 PG (27-31); MCV 83.9 FL (81-99); MONO# 0.86 X1000 (0.11-0.59); MONO% 8.3 % (1.7-9.3); MPV 9.5 FL (7.4-10.4); NEUT% 62.7 % (42.2-75.2); PLT 252 X1000 (130-400); RBC 3.92 XMIL (4.2-5.4)
[2017-03-11 06:28] LABS: CALCIUM 9.3 mg/dL (8.8-10.2)
[2017-03-11] MEDS: NS 1,000 ML IV SCH (10:24)
[2017-03-11 11:05] VITALS: BP 155/60
[2017-03-11] MEDS ORDERED: XANAX PO PRN (12:55)
[2017-03-11] MEDS ORDERED: MIRALAX PO PRN (12:55)
[2017-03-11] MEDS ORDERED: CYMBALTA PO SCH (13:00)
[2017-03-11] MEDS ORDERED: CARAFATE LIQUID PO SCH (13:00)
[2017-03-11] MEDS ORDERED: TUMS PO SCH (13:00)
[2017-03-11] MEDS ORDERED: ROCEPHIN 1 GM in NS 50 ML IV SCH (16:00)
[2017-03-11] MEDS ORDERED: DESYREL PO SCH (21:00)
[2017-03-11] MEDS ORDERED: NAMENDA PO SCH (21:00)
[2017-03-11] MEDS ORDERED: PRAVACHOL PO SCH (21:00)
[2017-03-11] MEDS ORDERED: KEFLEX PO SCH (21:00)
[2017-03-11] MEDS ORDERED: ARICEPT PO SCH (21:00)
[2017-03-12] MEDS ORDERED: PROTONIX PO SCH (07:00)
[2017-03-12] MEDS ORDERED: NORVASC PO SCH (09:00)
== END 2017-03-11 15:48 | disposition home health service (06) ==
LOC: P.ED 14:26 → SUATTDRO 18:07 → P.MEDSURG 18:07
PROVIDERS: ATTEND Internal Medicine